=== PATIENT | male | born 1950 | race Caucasian/White ===

== ENCOUNTER → 2020-02-28 10:18 | Outpatient (CLI) | payer MEDICARE, OTHER, SELFPAY ==
--- NOTE | 2020-02-28 10:19 | CA_ITS ---
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 RT(R) Ht: 6 ft 0 in Wt: 287lbs BSA: 2.48 BP: 133/50 mmHg Indications: CAD, SOA, HTN, DM, hyperlipidemia Echo Enhancing Agent Indication: Endocardial border delineation Agent(s) / Amount(s) Used: Definity 2 cc 2D Dimensions LVOT 2.18 cm (M/F) 1.5-2.5 M-Mode Dimensions RVDd 2.58 cm (0.9-2.6) LA Diam 3.15 cm (1.9-4.0) LVDd 4.50 cm (3.5-5.7) Ao Diam 4.00 cm (2.0-3.7) LVDs 3.28 cm (3.5-5.7) IVSd 1.17 cm (0.6-1.1) PWd 1.08 cm (0.6-1.1) EF (Teich) 52.90% FS 27.10% EDV (Teich) 92.40 mL ESV (Teich) 43.50 mL LV Diastology E Decel Time 253.00 (160-240 msec) E/A Ratio 0.9 MED E' 9.40 (< 7 cm/sec) E'/MED E' Ratio 10.33 (>14) LAT E' 8.10 (<10 cm/sec) E/LAT E' Ratio 11.99 (>14) Mitral Valve MV E Max Alex. 97.00 (40-130 cm/s) MV A Velocity 103.00 (40-130 cm/s) E/A Ratio 0.95 MV Decel. Time 253.00 (160-240 ms) MV PHT 74.00 ms Left Ventricle The left atrium is mildly enlarged, left ventricle is normal size, mild concentric left ventricular hypertrophy, visually estimated ejection fraction 55% with no regional wall motion abnormality, grade 1 diastolic dysfunction seen without tissue Doppler evidence of raise left atrial pressure, Definity contrast was utilized to delineate the endocardial surfaces, there is no left ventricular thrombus seen. Right Ventricle Right atrium and right ventricle are normal size and contractility. Aortic Valve Aortic valve is minimally thickened and fibrosed, there is no aortic stenosis or aortic insufficiency. Mitral Valve Mitral valve is grossly normal, there is mild mitral regurgitation. Tricuspid Valve Tricuspid valve grossly normal, there is mild tricuspid regurgitation, tricuspid regurgitation jet velocity is inadequate for calculation of the right ventricular systolic pressure. Pulmonic Valve Pulmonic valve is poorly visualized. Great Vessels Aortic root is normal size. Pericardium No significant pericardial effusion noted. Conclusion 1. Mildly enlarged left atrium, normal left ventricular size, mild concentric left ventricular hypertrophy, visually estimated ejection fraction 55% with no regional wall motion abnormality, grade 1 diastolic dysfunction seen without tissue Doppler evidence of raise left atrial pressure. Definity contrast was utilized to delineate the endocardial surfaces, there is no left ventricular thrombus seen. 2. Mild mitral and tricuspid regurgitation. 3. No significant pericardial effusion noted. Electronically signed by : Guero Modi, 02/29/2020 11:37:50
== END ==
PROVIDERS: Visit Provider Internal Medicine
DX: E78.5 Hyperlipidemia, unspecified (principal); I11.9 Hypertensive heart disease without heart failure; I25.10 Atherosclerotic heart disease of native coronary artery without angina pectoris; I50.33 Acute on chronic diastolic (congestive) heart failure
CPT/HCPCS: 93306; Q9957

== ENCOUNTER → 2022-01-08 14:02 | Outpatient (CLI) | payer MEDICARE, OTHER, SELFPAY | PROVIDERS: Visit Provider Physician Assistant | DX: R00.1 Bradycardia, unspecified (principal) | CPT/HCPCS: 93225; 93226 ==

== ENCOUNTER → 2022-01-09 14:09 | Outpatient (CLI) | payer MEDICARE, OTHER, SELFPAY ==
--- NOTE | 2022-01-09 14:19 | CA_ITS ---
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 Canchola CRT Ht: 6 ft 0 in Wt: 277lbs BSA: 2.45 BP: 153/66 mmHg Indications: Abnormal ECG, Hyperlipidemia, Hypertension/HDD, PVC 2D Dimensions LVOT 2.05 cm (M/F) 1.5-2.5 LA Volume 53.50 mL LA Volume Index 21.80 mL/m2 (M/F) 16-34 M-Mode Dimensions RVDd 3.96 cm (0.9-2.6) LA Diam 3.43 cm (1.9-4.0) LVDd 4.45 cm (3.5-5.7) Ao Diam 4.89 cm (2.0-3.7) LVDs 3.25 cm (3.5-5.7) IVSd 1.82 cm (0.6-1.1) PWd 0.93 cm (0.6-1.1) EF (Teich) 55.40% FS 29.20% EDV (Teich) 158.80 mL TAPSE 3.07 (<1.7) ESV (Teich) 70.80 mL LV Diastology E Decel Time 463.00 (160-240 msec) E/A Ratio 0.49 MED E' 6.80 (< 7 cm/sec) MED A' 10.50 cm/s E'/MED E' Ratio 6.75 (>14) LAT E' 8.20 (<10 cm/sec) LAT A' 13.10 cm/s E/LAT E' Ratio 5.60 (>14) Aortic Valve AO Peak GR. 5.80 mmHg Mitral Valve MV A Velocity 93.00 (40-130 cm/s) E/A Ratio 0.49 MV Decel. Time 463.00 (160-240 ms) Pulmonary Valve PV Peak Velocity 103.00 (50-150 cm/s) Tricuspid Valve TR P. Velocity 141.00 cm/s RAP Estimate 10.00 mmHg RVSP 18.00 mmHg Left Ventricle Niccoli difficult study because of the patient factors and poor acoustic windows. Left atrium is mildly enlarged, left ventricle is normal size mild concentric left ventricular hypertrophy, estimated ejection fraction 50% with no regional wall motion abnormality, endocardial surfaces are poorly visualized. Grade 1 diastolic dysfunction seen without tissue Doppler evidence of raise left atrial pressure. Right Ventricle Right atrium and right ventricle are mildly enlarged with normal contractility. Aortic Valve Aortic valve is minimally thickened and fibrosed there is no aortic stenosis aortic insufficiency. Mitral Valve Mitral valve is grossly normal, there is trace mitral regurgitation. Tricuspid Valve Tricuspid valve grossly normal, there is trace tricuspid regurgitation, tricuspid regurgitation jet velocity is inadequate for calculation of the right ventricular systolic pressure. Pulmonic Valve Pulmonic valve is poorly visualized. Great Vessels Aortic root is normal size. Inferior vena cava is poorly visualized. Pericardium No significant pericardial effusion noted. Conclusion 1. Technically difficult study because of the patient factors and poor acoustic windows. Mild biatrial enlargement, normal left ventricular size, mild concentric left ventricular hypertrophy, estimated ejection fraction 50% with no regional wall motion abnormality, grade 1 diastolic dysfunction seen without tissue Doppler evidence of raise left atrial pressure. 2. Mildly enlarged right ventricle with normal contractility. 3. Trace mitral and tricuspid regurgitation. 4. No significant pericardial effusion noted. 5. Inferior vena cava is poorly visualized. Electronically signed by : Guero Modi MD 01/09/2022 15:07:57
== END ==
PROVIDERS: PCP Internal Medicine; Visit Provider Physician Assistant
DX: R94.31 Abnormal electrocardiogram [ECG] [EKG] (principal)
CPT/HCPCS: 93306

== ENCOUNTER → 2023-02-24 09:41 | Outpatient (CLI) | payer MEDICARE, OTHER, SELFPAY ==
--- NOTE | 2023-02-24 09:49 | CA_ITS ---
APPROVED REPORT EXAM: Comprehensive 2D, Doppler, and color-flow Echocardiogram Manager Inpatient: Mickie Canchola CRT Ht: 6 ft 0 in Wt: 283lbs BSA: 2.47 BP: 140/66 mmHg Indications: Peripheral Edema, CAD, Hyperlipidemia,PVCs 2D Dimensions LVOT 2.03 cm (M/F) 1.5-2.5 LA Volume 36.20 mL LA Volume Index 9.233500 mL/m2 (M/F) 16-34 M-Mode Dimensions RVDd 2.96 cm (0.9-2.6) LA Diam 3.66 cm (1.9-4.0) LVDd 6.09 cm (3.5-5.7) Ao Diam 4.73 cm (2.0-3.7) LVDs 4.59 cm (3.5-5.7) IVSd 1.70 cm (0.6-1.1) PWd 1.29 cm (0.6-1.1) EF (Teich) 48.00% FS 24.60% EDV (Teich) 186.20 mL TAPSE 1.86 (<1.7) ESV (Teich) 96.80 mL LV Diastology E Decel Time 443.00 (160-240 msec) E/A Ratio 0.58 MED E' 4.10 (< 7 cm/sec) MED A' 11.00 cm/s E'/MED E' Ratio 11.22 (>14) LAT E' 7.10 (<10 cm/sec) LAT A' 9.70 cm/s E/LAT E' Ratio 6.48 (>14) Aortic Valve AO Peak GR. 10.20 mmHg Mitral Valve MV A Velocity 79.00 (40-130 cm/s) E/A Ratio 0.58 MV Decel. Time 443.00 (160-240 ms) Tricuspid Valve TR P. Velocity 147.00 cm/s Left Ventricle The left ventricle is normal size. The left ventricular systolic function is normal. The left ventricular ejection fraction is within the normal range. There is increased LV wall thickness. There is normal LV segmental wall motion. The left ventricular diastolic function is normal. LVEF is 55%. Right Ventricle The right ventricle is normal size. The right ventricular systolic function is normal. Atria The left atrium size is normal. The right atrium size is normal. There is no Doppler evidence of interatrial shunt. Aortic Valve The aortic valve is mildly thickened. The aortic valve opens well. There is no aortic valvular stenosis. No aortic regurgitation is present. Mitral Valve The mitral valve leaflets are mildly thickened. No evidence of mitral valve stenosis. Trace mitral regurgitation. Tricuspid Valve The tricuspid valve leaflets are thin and pliable. Trace tricuspid regurgitation. There is insufficient TR jet to estimate RVSP. Pulmonic Valve The pulmonary valve is normal in structure. Trace pulmonic regurgitation. Great Vessels The aortic root is normal in size. The ascending aorta is normal in size. IVC is normal in size and collapses >50% with inspiration. Pericardium There is no pericardial effusion. Other Information Study Quality: Technically Difficult Conclusion Technically difficult study due to poor acoustic windows. Normal biventricular systolic function. No significant valvular stenosis or regurgitation. Electronically signed by : Betsy Rader MD 02/24/2023 11:32:50
== END ==
PROVIDERS: PCP Internal Medicine; Visit Provider Physician Assistant
DX: E78.5 Hyperlipidemia, unspecified (principal); I25.10 Atherosclerotic heart disease of native coronary artery without angina pectoris; I11.9 Hypertensive heart disease without heart failure; I49.3 Ventricular premature depolarization; R60.9 Edema, unspecified; Z87.891 Personal history of nicotine dependence
CPT/HCPCS: 93306

== ENCOUNTER 2024-09-19 06:33 | Outpatient (CLI) | payer MEDICARE, OTHER, SELFPAY ==
--- NOTE | 2024-09-19 | CA_ITS ---
APPROVED REPORT Exam: Pharmacologic Technologist: Bea Greer Ht: 6 ft 0 in Wt: 270 lbs BSA: 2.42 m2 HR: 50 bpm BP: 152/71 mmHg Stress Test Details Test: Lexiscan HR Resting HR: 50 bpm Max Heart Rate (APMHR): 149.440432 bpm Max HR Achieved: 68 bpm Target HR (85% APMHR): 126.561671 bpm % of APMHR: 45.64 Recovery HR: 56 bpm BP Resting BP: 152.0/71.0 mmHg Max BP: 156.0/68.0 mmHg Recovery BP: 145.0/66.0 mmHg ECG Resting ECG: Sinus bradycardia Stress ECG Conclusion Symptoms: Lightheaded, dizziness, dyspnea Arrhythmias/Ectopy: PVC, PAC ST-T Changes: Less than [address] depression Conclusion: EKG unremarkable due to Lexiscan infusion. Electronically signed by : Betsy Rader MD 09/19/2024 23:40:10
--- NOTE | 2024-09-19 07:00 | NM_ITS ---
APPROVED REPORT Exam: Nuclear Stress Test Indication: SOB, Fatigue, HTN, DM, High cholesterol, Family history Patient Location: Outpatient Stress Tech: Bea Greer HI Tech:Eliza Light, ARRT, RT (R)(N) Ht: 6 ft 0 in Wt: 270 lbs HR: 57 bpm BP: 152/71 mmHg BSA: 2.42 m2 TID: 1.39 History: SOB, Fatigue, HTN, DM, High cholesterol, Family history Procedure: Patient received 0.4 mg of intravenous Lexiscan, resting heart rate 57 bpm, resting blood pressure 152/71 mmHg, with Lexiscan maximum heart rate achieved was 71 bpm which is % of the maximum predicted heart rate and blood pressure was 156/68 mmHg. With Lexiscan, patient denied any complaint of chest pain. Cardiac Stress and Resting SPECT Images: Cardiac Stress and Resting SPECT images were obtained using technetium 99m Myoview 31.5 mCi stress and 10.30 mCi at rest. Raw images demonstrate significant soft tissue overlap with the cardiac borders. This may affect the diagnostic interpretation of the study findings. Resting and stress imaging in supine position demonstrate a large sized, moderate, fixed perfusion defect in the inferior and inferior septal LV tran. This is no longer visualized with prone stress imaging. Findings are suggestive of diaphragmatic attenuation. There is increase in transient ischemic dilatation ratio (TID 1.39), suggestive of possible multivessel disease or balanced ischemia. Gated imaging demonstrates normal global and regional LV systolic function. LVEF is calculated at 52%. Conclusion: Diaphragmatic attenuation is present. There is increase in transient ischemic dilatation ratio (TID 1.39), suggestive of possible multivessel disease or balanced ischemia. Gated imaging demonstrates normal global and regional LV systolic function. LVEF is calculated at 52%. Electronically signed by : Betsy Rader MD 09/19/2024 23:35:12
[2024-09-19] MEDS: ISOTOPE MYOVIEW (PER STUDY) 1 DOSE IV (08:23)
[2024-09-19] MEDS: SODIUM CHLORIDE 0.9% 10ML SYR (RAD ONLY) 10 ML IV ×2 (08:23)
[2024-09-19] MEDS: REGADENOSON 0.4MG/5ML SYRINGE 0.4 MG IV (08:23)
--- NOTE | 2024-09-19 11:00 | CA_ITS ---
APPROVED REPORT EXAM: Comprehensive 2D, Doppler, and color-flow Echocardiogram [employer] Consultant: Carmina Dickerson RVT Ht: 6 ft 0 in Wt: 270lbs BSA: 2.42 BP: 126/63 mmHg Indications: CAD, DM, SOB, Ex-smoker, Edema, Palpitations, HTN, HLD 2D Dimensions LA Volume 44.90 mL LA Volume Index 18.10 mL/m2 (M/F) 16-34 M-Mode Dimensions RVDd 3.60 cm (0.9-2.6) LA Diam 3.77 cm (1.9-4.0) LVDd 4.87 cm (3.5-5.7) LVDs 3.18 cm (3.5-5.7) IVSd 1.50 cm (0.6-1.1) PWd 0.80 cm (0.6-1.1) EF (Teich) 63.80% FS 34.70% EDV (Teich) 111.20 mL TAPSE 2.07 (<1.7) ESV (Teich) 40.30 mL LV Diastology E Decel Time 270 (160-240 msec) E/A Ratio 0.70 Aortic Valve AoV Peak Alex. 133.0 (50-130 cm/s) AO Peak GR. 7.00 mmHg AO Mean GR. 3.80 (<5 mmHg) AO VTI 27.8 (18-25 cm) Mitral Valve MV E Max Alex. 67.0 (40-130 cm/s) MV A Velocity 95.0 (40-130 cm/s) E/A Ratio 0.70 MV PHT 79.0 ms Pulmonary Valve PV Peak Velocity 58.0 (50-150 cm/s) Tricuspid Valve TR P. Velocity 254.00 cm/s RAP Estimate 10.00 mmHg RVSP 35.90 mmHg Left Ventricle The left ventricle is normal size. The left ventricular systolic function is normal. The left ventricular ejection fraction is within the normal range. There is increased LV wall thickness. There is normal LV segmental wall motion. Transmitral Doppler flow pattern suggests impaired LV relaxation. LVEF is 55%. Right Ventricle Right ventricle is moderately dilated. Right ventricle is moderately hypokinetic. Atria The left atrium size is normal. Right atrium is mildly dilated. There is no Doppler evidence of interatrial shunt. Aortic Valve The aortic valve is mildly thickened. There is no aortic valvular stenosis. No aortic regurgitation is present. Mitral Valve The mitral valve is normal in structure. No evidence of mitral valve stenosis. Trace mitral regurgitation. Tricuspid Valve The tricuspid valve leaflets are thin and pliable. Trace tricuspid regurgitation. There is insufficient TR jet to estimate RVSP. Pulmonic Valve The pulmonary valve is normal in structure. Trace pulmonic regurgitation. Great Vessels The aortic root is normal in size. The ascending aorta is mildly dilated, measuring 3.8 cm in diameter. IVC is normal in size and collapses >50% with inspiration. Pericardium There is no pericardial effusion. Other Information Study Quality: Fair Conclusion Normal LV systolic function. Moderate RV dilation with moderate reduction in RV function. No significant valvular stenosis or regurgitation. Mildly dilated ascending aorta (3.8 cm in diameter). Correlation with new or recent CTA chest is suggested. Compared to prior study from 02/24/2023, the RV dysfunction is new. Further evaluation is suggested. Electronically signed by : Betsy Rader MD 09/25/2024 00:48:30
== END 2024-09-19 23:59 | disposition home or self-care (01) ==
LOC: RAD 06:35
PROVIDERS: PCP Nurse Practitioner Family; Visit Provider Physician Assistant
DX: I77.810 Thoracic aortic ectasia (principal); I11.9 Hypertensive heart disease without heart failure; R94.39 Abnormal result of other cardiovascular function study; I25.10 Atherosclerotic heart disease of native coronary artery without angina pectoris; E11.9 Type 2 diabetes mellitus without complications; E78.5 Hyperlipidemia, unspecified; Z87.891 Personal history of nicotine dependence; R60.9 Edema, unspecified; R00.2 Palpitations; E78.00 Pure hypercholesterolemia, unspecified
CPT/HCPCS: 78452; 93017; 93018; 93306; A9502; J2785